=== PATIENT | male | born 1985 | race African-American/Black ===

== ENCOUNTER 2025-01-28 15:47 | Emergency (ER) | payer MEDICAID ==
[~2025-01-28] VITALS: Ht 193 cm; Wt 95.0 kg
[2025-01-28 15:51] VITALS: BP 133/77; TEMP 36.9; O2SAT 100
[2025-01-28 15:52] VITALS: PULSE 76; RESP 17; O2SAT 98
== END 2025-01-28 22:58 | disposition home or self-care (01) ==
LOC: ER 15:47
DX: M79.606 Pain in leg, unspecified (principal); Z53.21 Procedure and treatment not carried out due to patient leaving prior to being seen by health care provider
CPT/HCPCS: 99281

== ENCOUNTER 2025-01-28 19:12 | Emergency (ER) | payer MEDICAID ==
[~2025-01-28] VITALS: Ht 193 cm; Wt 78.0 kg
[2025-01-28 19:22] VITALS: BP 124/63; PULSE 77; RESP 16; TEMP 36.8; O2SAT 98
[2025-01-28 20:13] LABS: BASOPHILS % 0.2 % (0.0-2.0); EOSINOPHILS % 1.0 % (0.0-5.0); HEMATOCRIT. 36.2 % (42.0-52.0); HEMOGLOBIN. 11.4 g/dL (14.0-18.0); LYMPHOCYTES % 18.8 % (20.0-50.0); MEAN PLATELET VOLUME 9.7 fl (7.4-10.4); MONOCYTES % 6.9 % (2.0-8.0); NEUTROPHILS % 73.1 % (40.0-76.0); PLATELET 175 x1000/uL (130-400); RED BLOOD CELL COUNT 4.53 mill/uL (4.7-6.1); RED CELL DISTRIBUTION WIDTH 21.2 % (11.6-14.6)
[2025-01-28 20:23] LABS: INR 0.9
[2025-01-28 20:26] LABS: CREATININE 0.8 mg/dL (0.6-1.3); UREA NITROGEN BLOOD 11 mg/dL (9-23)
[2025-01-28 20:27] LABS: TROPONIN I HIGH SENSITIVITY 4 ng/L (3.0-53)
[2025-01-28 20:28] LABS: ASPARTATE AMINOTRANSFERASE 20 IU/L (<34)
[2025-01-28 20:29] LABS: BILIRUBIN DIRECT < 0.1 mg/dL (<=3.0); BILIRUBIN TOTAL 0.3 mg/dL (0.1-1.0); PROTEIN TOTAL 6.8 g/dL (6.0-8.3)
[2025-01-28 20:33] LABS: ETHANOL BLOOD < 10 mg/dL (<10)
== END 2025-01-28 23:07 | disposition home or self-care (01) ==
LOC: ER 19:12
DX: R07.89 Other chest pain (principal); Z91.018 Allergy to other foods
CPT/HCPCS: 36415; 71045; 80048; 80076; 80320; 84484; 85025; 93005; 99285; G0480

== ENCOUNTER 2025-01-29 02:18 | Emergency (ER) | payer MEDICAID ==
[~2025-01-29] VITALS: Ht 193 cm; Wt 86.9 kg
[2025-01-29 02:30] VITALS: O2SAT 97
[2025-01-29 02:31] VITALS: BP 117/60; PULSE 65; RESP 18; TEMP 36.8; O2SAT 100
[2025-01-29 03:34] VITALS: TEMP 98.2
[2025-01-29] MEDS: ACETAMINOPHEN 500MG TABLET PO ONE (03:34)
[2025-01-30] MEDS ORDERED: TOPUD PO (06:42)
[2025-01-30] MEDS ORDERED: TERB30CR8 TP (17:25)
[2025-01-30] MEDS ORDERED: IBUP-1455 MT (17:25)
== END 2025-01-29 04:46 | disposition home or self-care (01) ==
LOC: ER 02:18
DX: M25.552 Pain in left hip (principal); M25.551 Pain in right hip; Z91.018 Allergy to other foods
CPT/HCPCS: 99283

== ENCOUNTER 2025-01-29 17:29 | Emergency (ER) | payer MEDICAID ==
[~2025-01-29] VITALS: Ht 185.4 cm; Wt 88.0 kg
[2025-01-29 18:25] VITALS: O2SAT 98
[2025-01-29 22:05] VITALS: TEMP 36.8; O2SAT 98
[2025-01-29 22:06] VITALS: BP 107/56; PULSE 71; RESP 16
[2025-01-29] MEDS: KETOROLAC 15MG/ML VIAL IM ONE (22:06)
[2025-01-30] MEDS ORDERED: TOPUD PO (06:42)
[2025-01-30] MEDS ORDERED: TERB30CR8 TP (17:25)
[2025-01-30] MEDS ORDERED: IBUP-1455 MT (17:25)
== END 2025-01-29 22:13 | disposition home or self-care (01) ==
LOC: ER 17:29
DX: M25.561 Pain in right knee (principal); M25.562 Pain in left knee; Z91.018 Allergy to other foods
CPT/HCPCS: 99283; 96372; J1885

== ENCOUNTER 2025-01-30 02:41 | Emergency (ER) | payer MEDICAID ==
[~2025-01-30] VITALS: Ht 185.4 cm; Wt 76.0 kg
[2025-01-30 03:08] VITALS: O2SAT 100
[2025-01-30] MEDS: ACETAMINOPHEN 500MG TABLET PO ONE (04:04)
[2025-01-30 04:07] VITALS: BP 107/57; PULSE 72; RESP 18; TEMP 36.8; O2SAT 100
[2025-01-30] MEDS ORDERED: TOPUD PO (06:42)
[2025-01-30] MEDS ORDERED: IBUP-1455 MT (17:25)
[2025-01-30] MEDS ORDERED: TERB30CR8 TP (17:25)
== END 2025-01-30 04:07 | disposition home or self-care (01) ==
LOC: ER 02:41
DX: G89.29 Other chronic pain (principal); M25.561 Pain in right knee; M25.562 Pain in left knee; K21.9 Gastro-esophageal reflux disease without esophagitis; Z91.018 Allergy to other foods
CPT/HCPCS: 99283

== ENCOUNTER 2025-01-30 05:04 | Emergency (ER) | payer MEDICAID ==
[~2025-01-30] VITALS: Ht 185.4 cm; Wt 76.0 kg
[2025-01-30 05:23] VITALS: O2SAT 99
[2025-01-30] MEDS: MAGNESIUM/ALUMINUM HYDROXIDE/SIMETHICONE 30ML UDC PO ONE (06:38)
[2025-01-30] MEDS: ACETAMINOPHEN 325MG TABLET PO ONE (06:38)
[2025-01-30] MEDS: FAMOTIDINE 20MG TABLET PO ONE (06:38)
[2025-01-30] MEDS ORDERED: TOPUD PO (06:42)
[2025-01-30 06:58] VITALS: BP 102/56; PULSE 64; RESP 14; TEMP 36.6; O2SAT 99
[2025-01-30] MEDS ORDERED: IBUP-1455 MT (17:25)
[2025-01-30] MEDS ORDERED: TERB30CR8 TP (17:25)
== END 2025-01-30 06:58 | disposition home or self-care (01) ==
LOC: ER 05:04
DX: M25.561 Pain in right knee (principal); K21.9 Gastro-esophageal reflux disease without esophagitis; W01.0XXA Fall on same level from slipping, tripping and stumbling without subsequent striking against object, initial encounter; Y93.89 Activity, other specified; Y92.89 Other specified places as the place of occurrence of the external cause; Y99.8 Other external cause status
CPT/HCPCS: 29505; 73562; 99284

== ENCOUNTER 2025-01-30 16:04 | Emergency (ER) | payer MEDICAID ==
[~2025-01-30] VITALS: Ht 193 cm; Wt 87.0 kg
[~2025-01-30 16:04] MED LIST: TOPUD PO
[2025-01-30 16:23] VITALS: O2SAT 100
[2025-01-30] MEDS ORDERED: KETOROLAC 30MG/ML VIAL IM ONE (17:15)
[2025-01-30] MEDS ORDERED: IBUP-1455 MT (17:25)
[2025-01-30] MEDS ORDERED: TERB30CR8 TP (17:25)
[2025-01-30 17:32] VITALS: BP 116/84; PULSE 65; RESP 16; TEMP 36.8; O2SAT 100
== END 2025-01-30 17:33 | disposition home or self-care (01) ==
LOC: ER 16:04
DX: B35.3 Tinea pedis (principal); Z91.018 Allergy to other foods
CPT/HCPCS: 99283

== ENCOUNTER 2025-01-30 20:46 | Emergency (ER) | payer MEDICAID ==
[~2025-01-30] VITALS: Ht 188 cm; Wt 86.0 kg
[~2025-01-30 20:46] MED LIST changes: +IBUP-1455 MT; +TERB30CR8 TP
[2025-01-30 21:10] VITALS: O2SAT 100
[2025-01-30 21:13] VITALS: TEMP 36.7; O2SAT 98
[2025-01-30 21:55] VITALS: BP 111/53; PULSE 90; RESP 18
[2025-01-30] MEDS: KETOROLAC 30MG/ML VIAL IM ONE (21:55)
== END 2025-01-30 21:58 | disposition home or self-care (01) ==
LOC: ER 20:46
DX: M79.10 Myalgia, unspecified site (principal); Z91.018 Allergy to other foods
CPT/HCPCS: 99283; 96372; J1885

== ENCOUNTER 2025-01-31 03:24 | Emergency (ER) | payer MEDICAID ==
[~2025-01-31] VITALS: Ht 188 cm; Wt 86.0 kg
[2025-01-31 03:29] VITALS: BP 112/62; PULSE 89; RESP 18; TEMP 36.7; O2SAT 100; O2SAT 99
== END 2025-01-31 04:08 | disposition home or self-care (01) ==
LOC: ER 03:24
DX: F43.10 Post-traumatic stress disorder, unspecified (principal); Z59.00 Homelessness unspecified; Z91.018 Allergy to other foods
CPT/HCPCS: 99283

== ENCOUNTER 2025-04-01 06:22 | Emergency (ER) | payer MEDICAID ==
[~2025-04-01] VITALS: Ht 193 cm; Wt 85.0 kg
[2025-04-01 06:28] VITALS: BP 128/88; O2SAT 98
[2025-04-01] MEDS ORDERED: ACET-2708 MT (07:00)
[2025-04-01] MEDS ORDERED: ACETAMINOPHEN 325MG TABLET PO ONE (07:45)
[2025-04-01 09:17] VITALS: TEMP 98.7
[2025-04-01] MEDS: ACETAMINOPHEN 325MG TABLET PO SCH (09:17)
[2025-04-01 09:32] VITALS: PULSE 83; RESP 16; O2SAT 100
== END 2025-04-01 09:35 | disposition home or self-care (01) ==
LOC: ER 06:22
DX: M79.672 Pain in left foot (principal); M79.671 Pain in right foot
CPT/HCPCS: 99283

== ENCOUNTER 2025-04-05 01:30 | Emergency (ER) | payer MEDICAID ==
[~2025-04-05] VITALS: Ht 188 cm; Wt 87.0 kg
[~2025-04-05 01:30] MED LIST changes: +ACET-2708 MT
[2025-04-05 01:42] VITALS: BP 126/84; PULSE 92; RESP 18; TEMP 98.6; O2SAT 98
[2025-04-05 02:47] LABS: BASOPHILS % 0.6 % (0.0-2.0); EOSINOPHILS % 0.3 % (0.0-5.0); HEMATOCRIT. 37.3 % (42.0-52.0); HEMOGLOBIN. 11.8 g/dL (14.0-18.0); LYMPHOCYTES % 21.7 % (20.0-50.0); MEAN PLATELET VOLUME 9.1 fl (7.4-10.4); MONOCYTES % 8.8 % (2.0-8.0); NEUTROPHILS % 68.6 % (40.0-76.0); PLATELET 195 x1000/uL (130-400); RED BLOOD CELL COUNT 4.67 mill/uL (4.7-6.1); RED CELL DISTRIBUTION WIDTH 19.4 % (11.6-14.6)
[2025-04-05] MEDS: ONDANSETRON HCL 4MG TABLET PO ONE (02:56)
[2025-04-05 03:11] LABS: CREATININE 0.9 mg/dL (0.6-1.3)
[2025-04-05 03:12] LABS: UREA NITROGEN BLOOD 14 mg/dL (9-23)
[2025-04-05 03:13] LABS: ASPARTATE AMINOTRANSFERASE 30 IU/L (<34)
[2025-04-05 03:14] LABS: BILIRUBIN DIRECT 0.1 mg/dL (<=3.0); BILIRUBIN TOTAL 0.3 mg/dL (0.1-1.0); PROTEIN TOTAL 7.9 g/dL (6.0-8.3)
== END 2025-04-05 05:00 | disposition home or self-care (01) ==
LOC: ER 01:30
DX: R11.0 Nausea (principal); F10.90 Alcohol use, unspecified, uncomplicated; Z91.018 Allergy to other foods; Z59.00 Homelessness unspecified; Y90.9 Presence of alcohol in blood, level not specified
CPT/HCPCS: 99283; 80076; 80048; 83690; 85025; 36415; Q0162

== ENCOUNTER 2025-04-17 05:55 | Emergency (ER) | payer SELFPAY ==
[~2025-04-17] VITALS: Ht 188 cm; Wt 86.0 kg
[2025-04-17 05:58] VITALS: O2SAT 100
[2025-04-17 06:09] VITALS: BP 142/91; PULSE 90; RESP 18; TEMP 36.7; O2SAT 99
[2025-04-17] MEDS: DIPHENHYDRAMINE 25MG CAPSULE PO ONE (09:34)
== END 2025-04-17 10:15 | disposition home or self-care (01) ==
LOC: ER 05:55
DX: T78.40XA Allergy, unspecified, initial encounter (principal); F20.9 Schizophrenia, unspecified; F41.9 Anxiety disorder, unspecified; Z79.899 Other long term (current) drug therapy; Z91.018 Allergy to other foods; X58.XXXA Exposure to other specified factors, initial encounter
CPT/HCPCS: 99282; Q0163; 99283

== ENCOUNTER 2025-04-17 18:07 | Emergency (ER) | payer SELFPAY ==
[~2025-04-17] VITALS: Ht 188 cm; Wt 82.0 kg
[2025-04-17 18:38] VITALS: O2SAT 95
[2025-04-17 23:53] LABS: BASOPHILS % 0.4 % (0.0-2.0); EOSINOPHILS % 0.9 % (0.0-5.0); HEMATOCRIT. 37.6 % (42.0-52.0); HEMOGLOBIN. 11.7 g/dL (14.0-18.0); LYMPHOCYTES % 27.3 % (20.0-50.0); MEAN PLATELET VOLUME 9.1 fl (7.4-10.4); MONOCYTES % 11.1 % (2.0-8.0); NEUTROPHILS % 60.3 % (40.0-76.0); PLATELET 297 x1000/uL (130-400); RED BLOOD CELL COUNT 4.72 mill/uL (4.7-6.1); RED CELL DISTRIBUTION WIDTH 19.3 % (11.6-14.6)
[2025-04-17 23:57] LABS: CREATININE 1.0 mg/dL (0.6-1.3); UREA NITROGEN BLOOD 14 mg/dL (9-23)
[2025-04-17 23:59] LABS: TROPONIN I HIGH SENSITIVITY 4 ng/L (3.0-53)
[2025-04-18 01:58] VITALS: BP 109/61; PULSE 78; RESP 14; TEMP 36.7; O2SAT 99
== END 2025-04-18 02:02 | disposition home or self-care (01) ==
LOC: ER 18:07
DX: R07.89 Other chest pain (principal); B34.9 Viral infection, unspecified; F41.9 Anxiety disorder, unspecified; F20.9 Schizophrenia, unspecified; Z79.899 Other long term (current) drug therapy; Z91.018 Allergy to other foods
CPT/HCPCS: 36415; 71045; 80048; 84484; 85025; 93005; 99285

== ENCOUNTER 2025-05-06 23:16 | Emergency (ER) | payer SELFPAY ==
[~2025-05-06] VITALS: Ht 188 cm; Wt 85.2 kg
[2025-05-06 23:24] VITALS: BP 113/64; PULSE 95; RESP 16; TEMP 36.7; O2SAT 99
[2025-05-07 00:45] VITALS: TEMP 98.1
[2025-05-07] MEDS: ACETAMINOPHEN 500MG TABLET PO ONE (00:45)
== END 2025-05-07 02:48 | disposition home or self-care (01) ==
LOC: ER 23:16
DX: R51.9 Headache, unspecified (principal); Z59.00 Homelessness unspecified; F20.9 Schizophrenia, unspecified; Z91.018 Allergy to other foods
CPT/HCPCS: 99284